=== PATIENT | female | born 1965 | race Caucasian/White ===

== ENCOUNTER 2017-12-09 20:24 | Emergency (ER) | payer OTHER, MEDICAID, SELFPAY ==
--- NOTE | 2017-12-09 20:28 | ED_ITS ---
HPI - Abdominal Pain General Chief Complaint: Abdominal Pain Stated Complaint: Rt upper ABD pain Time Seen by Provider: 12/09/17 20:27 Source: patient Mode of arrival: EMS Limitations: no limitations History of Present Illness HPI narrative: 52-year-old female here for evaluation of right upper quadrant abdominal pain. Patient uncertain the exact onset but some reports that it was less than 1 hr ago. Patient states that she has a history of ?colitis? and has abdominal pain daily and states that she feels distended. She states that the pain that brought her in today is different from her colitis pain. Has no change in bowel habits. No vomiting. Has no prior abdominal surgeries patient also states that she has a history of bleeding ulcers with her diagnosis of colitis. Also recently completing treatment of shingles that was on her right buttocks Related Data Home Medications Medication Instructions Recorded Confirmed [propanolol] #0 02/27/17 [wellbutrin] #0 02/27/17 Previous Rx's Medication Instructions Recorded acyclovir [Zovirax] 800 mg PO 5XD #35 tab 02/27/17 omeprazole 20 mg PO DAILY #60 cap 12/09/17 simethicone 125 mg PO BID-QID PRN #60 tab 12/09/17 Allergies Allergy/AdvReac Type Severity Reaction Status Date / Time bupropion [BUPROPION] Allergy Unknown Verified 12/09/17 21:08 latex [LATEX] Allergy Unknown Verified 12/09/17 21:08 Review of Systems Review of Systems All systems reviewed & are unremarkable except as noted in HPI and below Constitutional Denies chills, Denies fever(s), Denies lethargy and Denies weakness Cardiovascular Denies chest pain, Denies irregular heart rhythm, Denies lightheadedness, Denies palpitations, Denies dyspnea, Denies dyspnea on exertion and Denies orthopnea Respiratory Denies cough, Denies dyspnea, Denies dyspnea on exertion and Denies wheezing Gastrointestinal Gastrointestinal: Reports abdominal pain (Right upper quadrant), Denies melena, Reports bloating, Denies change in stool character, Denies coffee ground emesis , Denies constipation, Denies diarrhea, Denies nausea and Denies vomiting Genitourinary Denies hematuria, Denies flank pain, Denies urinary incontinence and Denies urinary urgency Musculoskeletal Denies back pain, Denies muscle weakness, Denies numbness and Denies tingling Integumentary/Breasts Denies pruritus, Denies erythema, Denies rash and Denies wounds Neurologic Denies numbness, Denies tingling and Denies weakness Endocrine Denies palpitations Hematologic/Lymphatic Denies easy bruising Allergic/Immunologic Denies wheezing [facility] Social History Smoking Status: Former smoker Exam Initial Vital Signs Initial Vital Signs: Vital Signs Temperature 97.5 F L 12/09/17 20:30 Pulse Rate 64 12/09/17 20:30 Respiratory Rate 18 12/09/17 20:30 Blood Pressure 136/63 H 12/09/17 20:30 Pulse Oximetry 98 12/09/17 20:30 Const General: cooperative, well developed and anxious Nutritional Appearance: well nourished Orientation: alert, awake, oriented x3 and not confused Resp Effort & Inspection: normal respiratory effort, able to speak in complete sentences, no respiratory distress and no use of accessory muscles Auscultation: clear to auscultation bilaterally, no rales, no rhonchi and no wheezes Cardio Rate: regular rate Rhythm: regular rhythm Heart Sounds: no click, no gallops, no murmurs and no rubs Pulses: normal peripheral pulses GI Inspection: normal to inspection and non-distended Palpation: soft, No firm and No guarding Back/Spine/Pelvis Back: No CVA tenderness Skin Other: Healing rash right buttocks Extrem General: full ROM, no clubbing, cyanosis or edema, no pedal edema and no calf tenderness Course Orders Ordered: ED Orders 12/09/17 20:38 US abdomen complete Stat 12/09/17 20:51 Complete Blood Count AUTO DIFF Stat Comprehensive Metabolic Panel Stat Lipase Stat 12/09/17 22:04 CT abdomen pelvis w con Stat Discontinued Medications Al Hydrox/Mg Hydrox/Simethicone 20 ml/ Lidocaine HCl 15 ml 0 ml PO NOW ONE Stop: 12/09/17 20:44 Last Admin: 12/09/17 20:58 Dose: 35 ml Morphine Sulfate (Morphine Sulfate) 5 mg IV NOW ONE Stop: 12/09/17 20:39 Last Admin: 12/09/17 20:48 Dose: 5 mg Morphine Sulfate (Morphine) 4 mg IV NOW ONE Stop: 12/09/17 22:05 Last Admin: 12/09/17 22:39 Dose: 4 mg Ondansetron HCl (Zofran) 4 mg IV NOW ONE Stop: 12/09/17 20:40 Last Admin: 12/09/17 20:49 Dose: 4 mg Vital Signs - 8 hr 12/09/17 20:30 12/09/17 21:59 12/09/17 23:47 Temperature 97.5 F L Pulse Rate 64 65 63 Respiratory Rate 18 18 Blood Pressure 136/63 H Blood Pressure [Left Arm] 118/72 96/51 L Pulse Oximetry 98 98 97 12/09/17 23:57 Temperature Pulse Rate 64 Respiratory Rate 12 Blood Pressure 100/59 L Blood Pressure [Left Arm] Pulse Oximetry 99 MDM - Abdominal Pain Lab Data Attestation: I reviewed the patient's lab results. Result diagrams: 12/09/17 20:51 12/09/17 20:51 Lab Results 12/09/17 12/09/17 Range/Units 20:51 20:51 WBC 4.7 (4.5-11.0) X10^3/uL RBC 3.76 L (4.0-5.2) X10^6/uL Hgb 12.7 (12.0-16.0) g/dL Hct 36.7 (36-46) % MCV 97.7 (80-100) fL MCH 33.8 (26-34) PG MCHC 34.6 (30-36) % RDW 14.7 (11.6-14.8) % Plt Count 223 (150-400) X10^3/uL Neut % (Auto) 46.8 L (50-75) % Lymph % (Auto) 41.5 H (25-40) % [place] % (Auto) 9.1 (3-14) % Eos % (Auto) 2.0 (2-4) % Baso % (Auto) 0.6 (0-2) % Neut # (Auto) 2200 L (8011-5661) /uL Sodium 143 (137-145) mmol/L Potassium 4.1 (3.4-5.1) mmol/L Chloride 102 (98-107) mmol/L Carbon Dioxide 29 (22-32) mmol/L BUN 12 (7-17) mg/dL Creatinine 0.70 (0.52-1.04) mg/dL Estimated GFR > 60.0 (>60) mL/min BUN/Creatinine Ratio 17.1 (6-22) Glucose 107 H (70-100) mg/dL Calcium 8.9 (8.4-10.2) mg/dL Total Bilirubin 0.5 (0.2-1.3) mg/dL AST 32 (14-36) IU/L ALT 30 (9-52) IU/L Alkaline Phosphatase 32 L (38-126) U/L Total Protein 6.9 (6.3-8.2) g/dL Albumin 4.2 (3.5-5.0) g/dL Globulin 2.7 (1.7-4.1) g/dL Albumin/Globulin Ratio 1.6 (1.0-2.8) Lipase 140 (23-300) U/L Imaging Data US - abdomen: Radiologist's impression: PROCEDURE: US ABDOMEN COMPLETE INDICATIONS: PAIN TECHNIQUE: Real-time scanning was performed of the abdominal and retroperitoneal organs, with image documentation. COMPARISON: [facility], CT, ABDOMEN/PELVIS WITH CONTRAST, 11/20/2007, 3:56. FINDINGS: Liver: Liver is normal in size and homogeneous in echotexture. Gallbladder: The gallbladder is normal. Biliary ducts: Intrahepatic bile ducts are non-dilated. Extrahepatic bile duct caliber measures 4.5 mm. Normal is 6-7 mm or less in diameter, or 10 mm or less post-cholecystectomy. Pancreas: Visualized portions of the pancreas are sonographically normal. Spleen: Spleen is normal in size and homogeneous in echotexture. Kidneys: Kidneys are normal in size and echotexture. Right kidney measures 9.0 cm long; left kidney measures 10.8 cm long. No hydronephrosis or nephrolithiasis. No solid masses. Aorta: Only the upper third of the aorta couldn't be seen due to bowel gas. That portion of measures normal. Iliacs: Not seen due to bowel gas. IVC: Intrahepatic inferior vena cava is patent. Miscellaneous: No free abdominal fluid. IMPRESSION: The proximal third of the aorta appeared normal. The remaining aorta and iliac arteries could not be seen due to bowel gas. Source of right upper quadrant pain is not found. Dictated by: Maximo Decker M.D. on 12/09/2017 at 21:26 CT scan - abdomen: Radiologist's impression: No acute intra-abdominal/intrapelvic process is identified. ECG Data Attestation: I personally reviewed and interpreted this ECG as follows: Prior ECG tracings: not available for review Interpretation: Time 2026 hr Sinus rhythm Ventricular rate is 64 Normal axis Normal intervals Normal QRS Normal QTC No ST T wave changes MDM Narrative Medical decision making narrative: Patient with a normal right upper quadrant ultrasound. Unremarkable CT scan of the abdomen. No surgical process found. We discussed symptom treatment to include PPI and simethicone for her bloating symptoms. We discussed return precautions. Will hold on further workup for now. Patient is instructed to keep her follow-up appointment with her primary doctor. She expressed understanding and agreement with plan Discharge Plan Departure Patient Disposition: Home, Self-Care Clinical Impression: Abdominal pain Discharge Date/Time: 12/10/17 00:00 Interventions: ED Discharge Assessment Last Done: 12/09/17 23:57 Instructions: DI for Abdominal Pain-Adult Activity Restrictions/Additional Instructions: Recommend that you contact your primary doctor tomorrow for a follow-up. Take the medication as directed. Return to the emergency department for any new or worsening symptoms Prescriptions: New omeprazole 20 mg capsule,delayed release(DR/EC) 20 mg PO DAILY Qty: 60 RF: 0 simethicone 125 mg tablet 125 mg PO BID-QID PRN (Reason: abdominal distention) Qty: 60 RF: 0 No Action [wellbutrin] Qty: 0 RF: 0 [propanolol] Qty: 0 RF: 0 acyclovir [Zovirax] 800 MG tablet 800 mg PO 5XD Qty: 35 RF: 0
[2017-12-09 20:30] VITALS: BP 136/63; PULSE 64; RESP 18; TEMP 36.4; O2SAT 98; BMI 25.8
--- NOTE | 2017-12-09 20:38 | DI.US.S_ITS ---
PROCEDURE: US ABDOMEN COMPLETE INDICATIONS: PAIN TECHNIQUE: Real-time scanning was performed of the abdominal and retroperitoneal organs, with image documentation. COMPARISON: [facility], CT, ABDOMEN/PELVIS WITH CONTRAST, 11/20/2007, 3:56. FINDINGS: Liver: Liver is normal in size and homogeneous in echotexture. Gallbladder: The gallbladder is normal. Biliary ducts: Intrahepatic bile ducts are non-dilated. Extrahepatic bile duct caliber measures 4.5 mm. Normal is 6-7 mm or less in diameter, or 10 mm or less post-cholecystectomy. Pancreas: Visualized portions of the pancreas are sonographically normal. Spleen: Spleen is normal in size and homogeneous in echotexture. Kidneys: Kidneys are normal in size and echotexture. Right kidney measures 9.0 cm long; left kidney measures 10.8 cm long. No hydronephrosis or nephrolithiasis. No solid masses. Aorta: Only the upper third of the aorta couldn't be seen due to bowel gas. That portion of measures normal. Iliacs: Not seen due to bowel gas. IVC: Intrahepatic inferior vena cava is patent. Miscellaneous: No free abdominal fluid. IMPRESSION: The proximal third of the aorta appeared normal. The remaining aorta and iliac arteries could not be seen due to bowel gas. Source of right upper quadrant pain is not found. Dictated by: Maximo Decker M.D. on 12/09/2017 at 21:26 Approved by: Maximo Decker M.D. on 12/09/2017 at 21:27
--- NOTE | 2017-12-09 20:43 | PC.NURSE ---
Pt c/o 04/22 sharp abdominal pain underneath the ribs on the right side. Was at home when the pain started suddenly at approx 194.
[2017-12-09] MEDS: MORPHINE 5 MG/ML INJ IV (20:48)
[2017-12-09] MEDS: ONDANSETRON 4 MG/2 ML INJ IV (20:49)
[2017-12-09] MEDS: MAG HYDROX/ALUMINUM/SIMETH SUS 20 ML, LIDOCAINE VISCOUS 2% 15 ML PO (20:58)
[2017-12-09 21:04] LABS: Add Manual Diff / Slide Review NO; Basophils Percent Auto 0.6 % (0-2); Hematocrit 36.7 % (36-46); Hemoglobin 12.7 g/dL (12.0-16.0); Lymphocytes Percent Auto 41.5 % (25-40); Mean Corpuscular HGB Conc 34.6 % (30-36); Mean Corpuscular Hemoglobin 33.8 PG (26-34); Mean Corpuscular Volume 97.7 fL (80-100); Monocytes Percent Auto 9.1 % (3-14); Neutrophils Absolute Auto 2200 /uL (3000-5900); Neutrophils Percent Auto 46.8 % (50-75); Platelet Count 223 X10^3/uL (150-400); Red Blood Cell Count 3.76 X10^6/uL (4.0-5.2); Red Cell Distribution Width 14.7 % (11.6-14.8); White Blood Cell Count 4.7 X10^3/uL (4.5-11.0)
[2017-12-09 21:10] LABS: Alanine Aminotransferase 30 IU/L (9-52); Albumin 4.2 g/dL (3.5-5.0); Albumin Globulin Ratio 1.6 (1.0-2.8); Alkaline Phosphatase 32 U/L (38-126); Aspartate Aminotransferase 32 IU/L (14-36); BUN Creatinine Ratio 17.1 (6-22); Bilirubin Total 0.5 mg/dL (0.2-1.3); Blood Urea Nitrogen 12 mg/dL (7-17); Calcium 8.9 mg/dL (8.4-10.2); Carbon Dioxide 29 mmol/L (22-32); Chloride 102 mmol/L (98-107); Estimated Glomerular Filt Rate > 60.0 mL/min (>60); Globulin 2.7 g/dL (1.7-4.1); Glucose 107 mg/dL (70-100); HEMOLYSIS < 15 (0-50); Lipase 140 U/L (23-300); Potassium 4.1 mmol/L (3.4-5.1); Sodium 143 mmol/L (137-145); Total Protein 6.9 g/dL (6.3-8.2)
[2017-12-09 21:59] VITALS: BP 118/72; PULSE 65; RESP 18; O2SAT 98
--- NOTE | 2017-12-09 22:04 | DI.CT.S_ITS ---
PROCEDURE: CT ABDOMEN PELVIS W CON INDICATIONS: Bilateral lower abdominal pain TECHNIQUE: After the administration of intravenous contrast, 5 mm thick sections acquired from the diaphragm to the symphysis. 5 mm coronal and sagittal reformats were acquired. For radiation dose reduction, the following was used: automated exposure control, adjustment of mA and/or kV according to patient size. COMPARISON: [facility], US, US ABDOMEN COMPLETE, 12/09/2017, 21:00. [facility], CT, ABDOMEN/PELVIS WITH CONTRAST, 11/20/2007, 3:56. FINDINGS: Preliminary report by [facility] radiology Image quality: Excellent. ABDOMEN: Lung bases: Lung bases are clear. Heart size is normal. Solid organs: Liver is normal in size and enhancement. There is mild, diffuse fatty infiltration of the liver. Gallbladder appears normal. Biliary system is non dilated. Pancreas enhances normally. Spleen is normal in size and enhancement. No adrenal nodules. Kidneys demonstrate normal size and enhancement, without hydronephrosis. Peritoneum and bowel: Bowel loops demonstrate normal wall thickness and caliber except for a focal area of small bowel wall thickening in the left lower quadrant, singlewall thickness of 11 mm. This is causing no apparent obstruction and there is no surrounding fat stranding or fluid collection. No evidence of appendicitis. Colon is unremarkable. No free fluid or air. Nodes and vessels: No retroperitoneal or mesenteric adenopathy by size criteria. Aorta and inferior vena cava are normal in size. Miscellaneous: No ventral hernias. PELVIS: Genitourinary: Bladder wall thickness is normal. Left and posterior periuterine calcified masses are again noted and unchanged, compatible with degenerative fibroids. Ovaries appear normal. No free fluid. Miscellaneous: No inguinal hernias or adenopathy. Bones: No suspicious bony lesions. No vertebral body compression fractures. IMPRESSION: 1. Not mentioned in the preliminary report is a short segment area of small bowel wall thickening in the left lower quadrant. This may represent chronic change from previous inflammatory bowel disease in the same area on last exam. No evidence of acute enteritis or obstruction. 2. Calcified exophytic uterine fibroids again noted. 3. Mild hepatic steatosis. Dictated by: Zachariah Almaguer M.D. on 12/10/2017 at 7:48 Approved by: Zachariah Almaguer M.D. on 12/10/2017 at 8:03
[2017-12-09] MEDS: MORPHINE 4 MG/ML INJ IV (22:39)
[2017-12-09 23:47] VITALS: BP 96/51; PULSE 63; O2SAT 97
[2017-12-09 23:57] VITALS: BP 100/59; PULSE 64; RESP 12; O2SAT 99
== END 2017-12-10 | disposition home or self-care (01) ==
PROVIDERS: Emergency Provider Emergency Medicine; Family Provider Family Medicine; PCP Family Medicine
DX: R10.9 Unspecified abdominal pain (principal)
CPT/HCPCS: 74177; 76700; 80053; 83690; 85025; 93005; 96374; 96375; 96376; 99283; 99285; J2270; J2405; Q9967

== ENCOUNTER → 2019-12-20 10:25 | Outpatient (CLI) | payer OTHER, MEDICAID, SELFPAY ==
[2019-12-20 11:08] LABS: Add Manual Diff / Slide Review NO; Basophils Absolute Auto 0 /uL (0-100); Basophils Percent Auto 0.4 % (0-2); Eosinophils Absolute Auto 100 /uL (0-450); Eosinophils Percent Auto 1.2 % (2-4); Hematocrit 39.2 % (36-46); Hemoglobin 13.6 g/dL (12.0-16.0); Lymphocytes Absolute Auto 1300 /uL (1100-4500); Lymphocytes Percent Auto 28.5 % (25-40); Mean Corpuscular HGB Conc 34.5 % (30-36); Mean Corpuscular Hemoglobin 33.3 PG (26-34); Mean Corpuscular Volume 96.5 fL (80-100); Monocytes Absolute Auto 400 /uL (0-900); Monocytes Percent Auto 8.2 % (3-14); Neutrophils Absolute Auto 2800 /uL (1500-7000); Neutrophils Percent Auto 61.7 % (50-75); Platelet Count 228 X10^3/uL (150-400); Red Blood Cell Count 4.07 X10^6/uL (4.0-5.2); White Blood Cell Count 4.6 X10^3/uL (4.5-11.0)
[2019-12-20 11:28] LABS: Alanine Aminotransferase 14 IU/L (<35); Albumin 4.2 g/dL (3.5-5.0); Albumin Globulin Ratio 1.4 (1.0-2.8); Alkaline Phosphatase 45 U/L (38-126); Aspartate Aminotransferase 27 IU/L (14-36); BUN Creatinine Ratio 18.6 (6-22); Bilirubin Total 0.5 mg/dL (0.2-1.3); Blood Urea Nitrogen 11 mg/dL (7-17); Calcium 9.4 mg/dL (8.4-10.2); Carbon Dioxide 28 mmol/L (22-32); Chloride 104 mmol/L (98-107); Cholesterol 267 mg/dL (140-199); Estimated Glomerular Filt Rate > 60.0 mL/min (>60); Globulin 2.9 g/dL (1.7-4.1); Glucose 114 mg/dL (70-100); HDL Cholesterol 91 mg/dL (40-60); HEMOLYSIS < 15 (0-50); LDL Cholesterol Calculated 163 mg/dL (<100); Potassium 4.1 mmol/L (3.4-5.1); Sodium 138 mmol/L (137-145); Total Protein 7.1 g/dL (6.3-8.2); Triglycerides 67 mg/dL (35-150)
[2019-12-20 11:44] LABS: Free T3, Triiodothyronine Free 3.67 pg/mL (2.77-5.27); Free T4, Direct Thyroxine 0.84 ng/dL (0.78-2.19)
[2019-12-20 11:58] LABS: Thyroid Stimulating Hormone 1.45 uIU/mL (0.47-4.68)
== END ==
PROVIDERS: Family Provider Family Medicine; PCP Family Medicine; Referring Provider Family Medicine; Visit Provider Family Medicine
DX: F41.9 Anxiety disorder, unspecified (principal); I10 Essential (primary) hypertension; E03.9 Hypothyroidism, unspecified; F32.1 Major depressive disorder, single episode, moderate
CPT/HCPCS: 36415; 80053; 80061; 84439; 84443; 84481; 85025

== ENCOUNTER 2022-12-04 12:58 | Observation (INO) | payer OTHER, MEDICAID, SELFPAY ==
[2022-12-04] VITALS (15 sets, daily range): BP systolic 135–206; BP diastolic 75–116; PULSE 29–81; RESP 16–35; TEMP 32.1–36.5; O2SAT 87–100; BMI 24.2; BMI 25.3
--- NOTE | 2022-12-04 13:23 | DI.RAD.S_ITS ---
PROCEDURE: XR CHEST 1V INDICATIONS: suspected sepsis TECHNIQUE: One view of the chest was acquired. COMPARISON: [facility], CHEST 1 VIEW, 09/03/2015, 12:37. [facility], , CHEST 2 VIEW, 08/11/2015, 10:48. FINDINGS: Surgical changes and devices: None. Lungs and pleura: Lungs are clear. No pleural effusions or pneumothorax. Mediastinum: Mediastinal contours appear normal. Heart size is normal. Bones and chest wall: No suspicious bony lesions. Overlying soft tissues appear unremarkable. IMPRESSION: No acute cardiopulmonary process. Dictated by: Karsten Crowley M.D. on 12/04/2022 at 12:56 Approved by: Karsten Crowley M.D. on 12/04/2022 at 12:56
--- NOTE | 2022-12-04 13:35 | DI.CT.S_ITS ---
PROCEDURE: CT HEAD/BRAIN WO CON INDICATIONS: hypothermia, fall, dog bites, acute on chronic back pain TECHNIQUE: Noncontrast 4.5 mm thick angled axial sections acquired from the foramen magnum to the vertex, with coronal and sagittal reformats. For radiation dose reduction, the following was used: automated exposure control, adjustment of mA and/or kV according to patient size. COMPARISON: None. FINDINGS: Image quality: Excellent. CSF spaces: Basal cisterns are patent. No extra-axial fluid collections. Ventricles are normal in size and shape. Brain: No midline shift. No intracranial masses or hemorrhage. Garcia-white matter interface is normal. Skull and face: Calvarium and visualized facial bones are intact, without suspicious lesions. Sinuses: Visualized sinuses and mastoids are clear. IMPRESSION: No acute intracranial pathology. Dictated by: Karsten Crowley M.D. on 12/04/2022 at 13:22 Approved by: Karsten Crowley M.D. on 12/04/2022 at 13:23
--- NOTE | 2022-12-04 13:35 | DI.CT.S_ITS ---
PROCEDURE: CT CERVICAL SPINE WO CON INDICATIONS: hypothermia, fall, dog bites, acute on chronic back pain TECHNIQUE: Noncontrast 3 mm thick sections acquired from the skull base to the T4 level. Sagittal and coronal reformats were then constructed. For radiation dose reduction, the following was used: automated exposure control, adjustment of mA and/or kV according to patient size. COMPARISON: None. FINDINGS: Image quality: Excellent. Bones: No fractures or dislocations. Visualized superior ribs are intact. Mild disc height loss at C6-7 and C5-6. Soft tissues: Prevertebral soft tissues are normal in thickness. No paravertebral hematomas. No apical pneumothoraces. IMPRESSION: No acute, displaced fracture or traumatic subluxation. Dictated by: Karsten Crowley M.D. on 12/04/2022 at 13:29 Approved by: Karsten Crowley M.D. on 12/04/2022 at 13:31
--- NOTE | 2022-12-04 13:35 | DI.CT.S_ITS ---
PROCEDURE: CT CHEST ABD PEL W CON INDICATIONS: hypothermia, fall, dog bites, acute on chronic back pain TECHNIQUE: After the administration of intravenous contrast, 5 mm thick sections acquired from the lung apices to the symphysis. 2.5 mm thick coronal and sagittal reformats were acquired. Additional 7 mm thick coronal maximum intensity projection (MIP) reformats acquired through the lungs. Optional 10-minute delayed imaging may be performed from the kidneys to the bladder. For radiation dose reduction, the following was used: automated exposure control, adjustment of mA and/or kV according to patient size. COMPARISON: None. FINDINGS: Image quality: Excellent. CHEST: Lungs: No pulmonary contusions or lacerations. No acute airspace opacities. No pneumothorax or hemothorax. Central and peripheral airways appear patent and normal in caliber. Mediastinum: No mediastinal hematomas. Heart size is normal. No pericardial effusion. Thoracic aorta and pulmonary arteries demonstrate normal size and enhancement. No mediastinal or hilar adenopathy. Esophagus is normal in caliber. No hiatal hernia. Marked coronary artery calcifications for age. Chest wall: No rib fractures. No subcutaneous emphysema. No axillary or supraclavicular adenopathy. Thyroid gland is unremarkable. Prior right breast lumpectomy, with superficial fat stranding ABDOMEN: Solid organs: Liver is normal in size and enhancement, without lacerations. Gallbladder is unremarkable. Biliary system is non-dilated. Pancreas enhances normally, without transection. Spleen is normal in size and enhancement, without lacerations. No adrenal hematomas. Both kidneys enhance normally, without hydronephrosis or lacerations. Peritoneum and bowel: No free fluid or air. Unenhanced bowel loops demonstrate normal wall thickness and caliber. Nodes and vessels: No retroperitoneal or mesenteric adenopathy. Aorta and inferior vena cava are normal in size and enhancement. Miscellaneous: No ventral hernias. PELVIS: Genitourinary: Vo catheter within bladder. Calcified subserosal fibroid. Miscellaneous: No inguinal hernias or adenopathy. Bones: Pelvic ring and hip joints appear intact. No vertebral compression fractures. IMPRESSION: No traumatic injury to the chest, abdomen or pelvis. Marked coronary artery calcifications for age. Consider cardiology referral. Dictated by: Karsten Crowley M.D. on 12/04/2022 at 13:24 Approved by: Karsten Crowley M.D. on 12/04/2022 at 13:29
[2022-12-04 13:36] LABS: Alanine Aminotransferase 38 IU/L (<35); Albumin Globulin Ratio 1.6 (1.0-2.8); Alkaline Phosphatase 71 U/L (38-126); Aspartate Aminotransferase 86 IU/L (14-36); BUN Creatinine Ratio 23.3 (6-22); Bilirubin Total 0.8 mg/dL (0.2-1.3); Blood Urea Nitrogen 14 mg/dL (7-17); Calcium 9.8 mg/dL (8.4-10.2); Carbon Dioxide 22 mmol/L (22-32); Chloride 106 mmol/L (98-107); Creatine Kinase 201 U/L (30-135); Estimated Glomerular Filt Rate > 60 mL/min (>60); Globulin 3.1 g/dL (1.7-4.1); Glucose 88 mg/dL (70-100); Lactate (Lactic Acid) 3.6 mmol/L (0.7-2.1); Lipase 91 U/L (23-300); Potassium 3.1 mmol/L (3.4-5.1); Sodium 144 mmol/L (137-145); Total Protein 8.1 g/dL (6.3-8.2)
--- NOTE | 2022-12-04 13:38 | ED.WEAKNESS ---
HPI - Weakness General Chief complaint: Weakness Stated complaint: Generalized Weakness Time Seen by Provider: 12/04/22 13:34 Source: patient and EMS Mode of arrival: EMS History of Present Illness HPI Narrative: This is a 57-year-old female with history of hypertension, hypothyroidism, depression who states she was started on a new medication a week ago for her heart to prevent heart failure or strokes. Patient states that she ended up on the floor this morning a couple hours prior to arrival. She states she is been having a lot of increased back pain she did not have a fall today but lowered herself to the ground secondary to pain. She does note that in the past week starting on Friday or Friday she had been breaking up a dog fight fell about 2 or 3 steps off a porch onto her side been had bites on her legs and abdomen and has bruises on her legs, abdomen left under I. She states her pain did seem to be worsening after that she has chronic pain but it has been much worse. She denies radiation. She denies any numbness, tingling or weakness. She denies any loss of bowel or bladder control. She denies fevers but states she is very cold. She states she got really sweaty today when she ended up on the floor and then got very cold. She denies nasal congestion, cold or cough symptoms. She denies chest pain or shortness of breath she denies nausea or vomiting. She denies diarrhea constipation. She denies any fecal or urinary incontinence. She denies new swelling in her extremities. She states bruising has been slowly improving. Patient states she is had lumpectomy x2 they had to go back after the 07 14 to get some additional tissue. She denies any other surgeries no prior back surgeries. No tobacco she states she drinks alcohol occasionally a couple drinks but she is a little vague about this. She does use THC. She denies any illicit or IV drugs. Patient states she is allergic to latex and iodine topically. And bupropion. Patient friend had called for assistance she would called her friend who she could not get up off the floor. Patient notes that she is been caring for her son's dogs for the past month and she is had to break up multiple fights but to into female animals. Related Data Home Medications Medication Instructions Recorded Confirmed anastrozole 1 mg tablet 1 mg PO DAILY 05/24/23 05/24/23 buspirone 10 mg tablet 10 mg PO BID 12/04/22 12/04/22 fluoxetine 40 mg capsule 40 mg PO DAILY 12/04/22 12/04/22 levothyroxine 50 mcg tablet 50 mcg PO DAILY 12/04/22 12/04/22 lisinopril 40 mg tablet 40 mg PO DAILY 12/04/22 12/04/22 propranolol 80 mg capsule,24 80 mg PO DAILY 12/04/22 12/04/22 hr,extended release rosuvastatin 5 mg tablet 5 mg PO DAILY 12/04/22 12/04/22 Allergies Allergy/AdvReac Type Severity Reaction Status Date / Time bupropion [BUPROPION] Allergy Unknown Verified 12/09/17 21:08 latex [LATEX] Allergy Unknown Verified 12/09/17 21:08 Review of Systems Review of Systems ROS Unobtainable: All systems reviewed & are unremarkable except as noted in HPI and below Patient History Social History household members: children Smoking Status: Former smoker alcohol intake: current Smoking Status: Former smoker alcohol intake frequency: a few times a week Substance Use Type: marijuana Exam Narrative Exam Narrative: GEN: Disheveled female, alert and oriented x 3, patient appears to be in [id number] distress. Patient feels slightly cold to touch. HEENT: Atraumatic except for to small areas of ecchymosis below the left eye over the cheek bone, no hematoma appreciated, no breakdown of the skin pupils are equal round reactive to light, extraocular movements are intact, nares are clear, TMs are clear with no fluid, there is no conjunctival pallor. Throat is clear without any exudates, erythema, tonsillar enlargement or uvular deviation HEART: Bradycardic but Regular rate and rhythm without murmur, clicks, rubs. No carotid bruits, pulses are equal in upper and lower extremities LUNGS:Lungs clear to auscultation, no wheezes, rales, crackles, chest moves symmetrically ABD:bowel sounds normal, soft, non-tender, no guarding, rebound, rigidity, no masses noted, no hepatosplenomegaly :No CVA tenderness BACK: No cervical, thoracic or lumbar vertebral point tenderness. Patient has some slight increase in pain in the lower lumbar spine bilaterally in the lateral sides. Patient has decreased range of motion at the back. Patient's gait is deferred. Rectal exam is normal tone.. Muscle strength is 5/5 in lower extremities, patient able to move legs and straight leg lift without issue, DTRs are 2/4 and lower extremities. Dorsalis pedis and tibialis pulses are 2+ and lower extremities. Sensation is intact in the lower extremities. MSCL: Mild tenderness, patient has significant bruising over bilateral lower extremities ranging from about 12 cm x 8 cm 2 smaller areas, no large hematomas are appreciated but she has multiple areas with abrasion no clear puncture wounds are appreciated over her calves, thighs, patient has a small area of abrasion on the right lower abdomen. She also has quite a bit of bruising on bilateral elbows with abrasion hands. No warmth, erythema or skin changes otherwise. No large hematomas were palpated. No bruising on the back. No muscle atrophy, muscles strength 5/5 upper and lower extremities, full range of motion. NEURO:CN 2-12 intact, sensation normal, reflexes 2/4 upper and lower extremities. Initial Vital Signs Initial Vital Signs: Vital Signs Pulse Rate 29 L 12/04/22 13:04 Pulse Oximetry 87 L 12/04/22 13:04 Course Orders Ordered: ED Orders 12/04/22 13:23 XR chest 1V Stat Acetaminophen Stat BNP [NT-proBNP (BNP-Adult 18+)] Stat COVID19 -Nasal RAPID Stat Complete Blood Count AUTO DIFF Stat Comprehensive Metabolic Panel Stat ETOH [Ethanol (ETOH)] Stat Lactate (Lactic Acid) Stat Lipase Stat Procalcitonin Stat Salicylate Stat Troponin & CK Cardiac Panel Stat 12/04/22 13:31 UA Complete [Urinalysis and Microscopic] Stat Urine Drug Screen, Rapid Stat 12/04/22 13:35 CT cervical spine wo con Stat CT chest abd pel w con Stat CT head/brain wo con Stat COVID19 -Nasal RAPID Stat 12/04/22 13:37 EKG-12 Lead Stat 12/04/22 14:29 PTT Partial Thromboplastin Lc Stat Prothrombin Time INR Stat 12/04/22 14:38 Blood Culture Stat 12/04/22 14:41 Consult to LANDSCAPE DESIGNER - Business Continuity Specialist Stat 12/04/22 14:54 Consult to LANDSCAPE DESIGNER - Business Continuity Specialist Stat Acetaminophen (Acetaminophen 325 Mg Tablet) 650 mg PO Q6H PRN PRN Reason: Fever/Mild Pain (1-3) Hydrocodone Bitart/Acetaminophen (Hydrocodone/Acet 5/325 Tablet) 1 tab PO Q4H PRN PRN Reason: Pain, Moderate (4-6) Alprazolam (Alprazolam 0.5 Mg Tablet) 0.5 mg PO Q6H PRN PRN Reason: Anxiety Anastrozole (Anastrozole 1 Mg Tablet) 1 mg PO DAILY [facility] Atorvastatin Calcium (Atorvastatin 20 Mg Tablet) 10 mg PO BEDTIME [facility] Buspirone HCl (Buspirone 5 Mg Tablet) 10 mg PO BID [facility] Enoxaparin Sodium (Enoxaparin 40 Mg/0.4 Ml Syringe) 40 mg SUBCUT DAILY [facility] Fluoxetine HCl (Fluoxetine 20 Mg Capsule) 40 mg PO DAILY [facility] Hydralazine HCl (Hydralazine 20 Mg/Ml Vial) 10 mg IV Q6HR PRN PRN Reason: Hypertension SBP >180 Sodium Chloride (Normal Saline 0.9%) 1,000 mls @ 100 mls/hr IV CONT [facility] Levothyroxine Sodium (Levothyroxine 50 Mcg Tablet) 50 mcg PO DAILY@0600 [facility] Lisinopril (Lisinopril 20 Mg Tablet) 40 mg PO DAILY [facility] Naloxone HCl (Naloxone 0.4 Mg/Ml Vial) 0.2 mg IV Q2MIN PRN PRN Reason: Opiate Reversal Propranolol 80 Mg Er (Cap 24hr) 80 mg PO DAILY [facility] Ondansetron HCl (Ondansetron 4 Mg Odt) 4 mg SL NOW PRN PRN Reason: Nausea And Vomiting Discontinued Medications Diphtheria/Tetanus/Acell Pertussis (Tet,Diph,Pertuss(Acell),Vac/Pf 0.5 Ml Syringe) 0.5 ml IM .ONCE ONE Stop: 12/04/22 13:45 Last Admin: 12/04/22 15:05 Dose: 0.5 ml Documented By: ANAIS Sodium Chloride (Normal Saline 0.9%) 1,000 mls @ 1,000 mls/hr IV BOLUS ONE Stop: 12/04/22 14:22 Last Infusion: 12/04/22 14:42 Dose: 1,000 mls/hr Documented By: Infusion: 12/04/22 14:41 Dose: 0 mls/hr Documented By: Admin: 12/04/22 13:59 Dose: 1,000 mls/hr Documented By: TIKI Sodium Chloride (Normal Saline 0.9%) 1,000 mls @ 1,000 mls/hr IV BOLUS ONE Stop: 12/04/22 15:40 Last Infusion: 12/04/22 15:54 Dose: 0 mls/hr Documented By: Admin: 12/04/22 14:40 Dose: 1,000 mls/hr Documented By: ANAIS Ketorolac Tromethamine (Ketorolac 30 Mg/Ml Vial) 15 mg IV NOW ONE Stop: 12/04/22 14:55 Last Admin: 12/04/22 15:04 Dose: 15 mg Documented By: ANAIS Ondansetron HCl (Ondansetron 4 Mg/2 Ml Inj) 4 mg IV NOW PRN PRN Reason: Nausea And Vomiting Last Admin: 12/04/22 15:03 Dose: 4 mg Documented By: ANAIS Potassium Chloride (Potassium Chloride 20 Meq/15 Ml Udc) 40 meq PO NOW ONE Stop: 12/04/22 14:55 Last Admin: 12/04/22 15:02 Dose: 40 meq Documented By: ANAIS Vital Signs Vital signs: Vital Signs - 8 hr 12/04/22 13:15 12/04/22 13:04 12/04/22 13:30 Temperature 89.8 F L Pulse Rate 63 29 L 58 L Respiratory Rate 20 35 H Blood Pressure 202/100 H Pulse Oximetry 95 87 L 92 Oxygen Delivery Method Room Air 12/04/22 13:40 12/04/22 13:40 12/04/22 13:59 Temperature 90.7 F L Pulse Rate 51 L Respiratory Rate 23 Blood Pressure 203/92 H 167/116 H Pulse Oximetry 97 Oxygen Delivery Method 12/04/22 13:59 12/04/22 14:00 12/04/22 14:00 Temperature Pulse Rate 67 70 Respiratory Rate 22 24 Blood Pressure 206/82 H Pulse Oximetry 95 94 Oxygen Delivery Method 12/04/22 14:04 12/04/22 14:04 12/04/22 14:15 Temperature 92.5 F L 93.4 F L Pulse Rate 68 71 Respiratory Rate 21 22 Blood Pressure 190/113 H Pulse Oximetry 98 96 Oxygen Delivery Method 12/04/22 14:15 12/04/22 14:30 12/04/22 14:39 Temperature 94.1 F L Pulse Rate 78 Respiratory Rate 23 Blood Pressure 175/103 H 178/79 H Pulse Oximetry 95 Oxygen Delivery Method 12/04/22 14:39 12/04/22 15:00 Temperature 94.3 F L Pulse Rate 74 Respiratory Rate 29 H Blood Pressure 155/75 H Pulse Oximetry 94 Oxygen Delivery Method MDM - Weakness Lab Data 12/04/22 13:23 12/04/22 13:23 Labs: Lab Results 12/04/22 12/04/22 12/04/22 Range/Units 13:23 13:23 13:23 WBC 10.9 (4.5-11.0) X10^3/uL RBC 4.22 (4.0-5.2) X10^6/uL Hgb 14.0 (12.0-16.0) g/dL Hct 40.8 (36-46) % MCV 96.9 (80-100) fL MCH 33.3 (26-34) PG MCHC 34.3 (30-36) % RDW 13.4 (11.6-14.8) % Plt Count 261 (150-400) X10^3/uL Neut % (Auto) 77.9 H (50-75) % Lymph % (Auto) 16.9 L (25-40) % [place] % (Auto) 4.3 (3-14) % Eos % (Auto) 0.4 L (2-4) % Baso % (Auto) 0.5 (0-2) % Neut # (Auto) 8500 H (4955-7840) /uL Lymph # (Auto) 1800 (2180-2632) /uL [place] # (Auto) 500 (0-900) /uL Eos # (Auto) 0 (0-450) /uL Baso # (Auto) 100 (0-100) /uL PT (10.1-12.7) SECONDS INR (0.9-1.3) APTT (26-36) SECONDS Sodium 144 (137-145) mmol/L Potassium 3.1 L (3.4-5.1) mmol/L Chloride 106 (98-107) mmol/L Carbon Dioxide 22 (22-32) mmol/L BUN 14 (7-17) mg/dL Creatinine 0.60 (0.52-1.04) mg/dL Estimated GFR > 60 (>60) mL/min BUN/Creatinine Ratio 23.3 H (6-22) Glucose 88 (70-100) mg/dL Lactate 3.6 H (0.7-2.1) mmol/L Calcium 9.8 (8.4-10.2) mg/dL Total Bilirubin 0.8 (0.2-1.3) mg/dL AST 86 H (14-36) IU/L ALT 38 H (<35) IU/L Alkaline Phosphatase 71 (38-126) U/L Total Creatine Kinase 201 H (30-135) U/L CK-MB (CK-2) 1.63 (<2.37) ng/mL CK-MB (CK-2) Rel Index 0.8 L (1.5-5.0) % Troponin I < 0.012 (0.01-0.034) ng/mL NT-Pro-B Natriuret Pep 402 H (<125) pg/mL Total Protein 8.1 (6.3-8.2) g/dL Albumin 5.0 (3.5-5.0) g/dL Globulin 3.1 (1.7-4.1) g/dL Albumin/Globulin Ratio 1.6 (1.0-2.8) Lipase 91 (23-300) U/L Procalcitonin 0.03 (<0.5) ng/mL Urine Color Urine Appearance Urine pH (4.5-8.0) Ur Specific [place] (1.000-1.035) Urine Protein (Negative) Urine Glucose (UA) (Negative) g/dL Urine Ketones (NEGATIVE) Urine Occult Blood (Negative) Urine Nitrate (Negative) Urine Bilirubin (NEGATIVE) Urine Urobilinogen (0.2) E.U./dL Ur Leukocyte Esterase (NEGATIVE) Urine RBC (0-5/HPF) Urine WBC (0-5/HPF) Urine Bacteria (None) Ur Culture Indicated? Micro UA Comment Salicylates (<20) mg/dL U Opiates 300ng/mL cut (Negative) Ur Oxycodone Screen (Negative) Urine Methadone Screen (Negative) Acetaminophen (10-30) ug/mL Ur Barbiturates Screen (Negative) U Tricyclic Antidepress (Negative) Ur Phencyclidine Scrn (Negative) Ur Amphetamines Screen (Negative) U Methamphetamines Scrn (Negative) Ur MDMA Scrn (Ecstasy) (Negative) U Benzodiazepines Scrn (Negative) Urine Cocaine Screen (Negative) U Marijuana (THC) Screen (Negative) Ethyl Alcohol ( - 10) mg/dL 12/04/22 12/04/22 12/04/22 Range/Units 13:23 13:23 13:31 WBC (4.5-11.0) X10^3/uL RBC (4.0-5.2) X10^6/uL Hgb (12.0-16.0) g/dL Hct (36-46) % MCV (80-100) fL MCH (26-34) PG MCHC (30-36) % RDW (11.6-14.8) % Plt Count (150-400) X10^3/uL Neut % (Auto) (50-75) % Lymph % (Auto) (25-40) % [place] % (Auto) (3-14) % Eos % (Auto) (2-4) % Baso % (Auto) (0-2) % Neut # (Auto) (1753-3422) /uL Lymph # (Auto) (6963-2715) /uL [place] # (Auto) (0-900) /uL Eos # (Auto) (0-450) /uL Baso # (Auto) (0-100) /uL PT (10.1-12.7) SECONDS INR (0.9-1.3) APTT (26-36) SECONDS Sodium (137-145) mmol/L Potassium (3.4-5.1) mmol/L Chloride (98-107) mmol/L Carbon Dioxide (22-32) mmol/L BUN (7-17) mg/dL Creatinine (0.52-1.04) mg/dL Estimated GFR (>60) mL/min BUN/Creatinine Ratio (6-22) Glucose (70-100) mg/dL Lactate (0.7-2.1) mmol/L Calcium (8.4-10.2) mg/dL Total Bilirubin (0.2-1.3) mg/dL AST (14-36) IU/L ALT (<35) IU/L Alkaline Phosphatase (38-126) U/L Total Creatine Kinase (30-135) U/L CK-MB (CK-2) (<2.37) ng/mL CK-MB (CK-2) Rel Index (1.5-5.0) % Troponin I (0.01-0.034) ng/mL NT-Pro-B Natriuret Pep (<125) pg/mL Total Protein (6.3-8.2) g/dL Albumin (3.5-5.0) g/dL Globulin (1.7-4.1) g/dL Albumin/Globulin Ratio (1.0-2.8) Lipase (23-300) U/L Procalcitonin (<0.5) ng/mL Urine Color Yellow Urine Appearance Clear Urine pH 5.5 (4.5-8.0) Ur Specific [place] 1.025 (1.000-1.035) Urine Protein Negative (Negative) Urine Glucose (UA) Negative (Negative) g/dL Urine Ketones 3+ H (NEGATIVE) Urine Occult Blood Negative (Negative) Urine Nitrate Negative (Negative) Urine Bilirubin Negative (NEGATIVE) Urine Urobilinogen 0.2 (0.2) E.U./dL Ur Leukocyte Esterase Negative (NEGATIVE) Urine RBC None seen (0-5/HPF) Urine WBC None seen (0-5/HPF) Urine Bacteria None seen (None) Ur Culture Indicated? Cult not indicated Micro UA Comment Microscopic normal Salicylates < 1.0 (<20) mg/dL U Opiates 300ng/mL cut (Negative) Ur Oxycodone Screen (Negative) Urine Methadone Screen (Negative) Acetaminophen < 10 (10-30) ug/mL Ur Barbiturates Screen (Negative) U Tricyclic Antidepress (Negative) Ur Phencyclidine Scrn (Negative) Ur Amphetamines Screen (Negative) U Methamphetamines Scrn (Negative) Ur MDMA Scrn (Ecstasy) (Negative) U Benzodiazepines Scrn (Negative) Urine Cocaine Screen (Negative) U Marijuana (THC) Screen (Negative) Ethyl Alcohol < 10 ( - 10) mg/dL 12/04/22 12/04/22 Range/Units 13:31 14:29 WBC (4.5-11.0) X10^3/uL RBC (4.0-5.2) X10^6/uL Hgb (12.0-16.0) g/dL Hct (36-46) % MCV (80-100) fL MCH (26-34) PG MCHC (30-36) % RDW (11.6-14.8) % Plt Count (150-400) X10^3/uL Neut % (Auto) (50-75) % Lymph % (Auto) (25-40) % [place] % (Auto) (3-14) % Eos % (Auto) (2-4) % Baso % (Auto) (0-2) % Neut # (Auto) (2962-8194) /uL Lymph # (Auto) (4047-6734) /uL [place] # (Auto) (0-900) /uL Eos # (Auto) (0-450) /uL Baso # (Auto) (0-100) /uL PT 11.7 (10.1-12.7) SECONDS INR 1.0 (0.9-1.3) APTT 30 (26-36) SECONDS Sodium (137-145) mmol/L Potassium (3.4-5.1) mmol/L Chloride (98-107) mmol/L Carbon Dioxide (22-32) mmol/L BUN (7-17) mg/dL Creatinine (0.52-1.04) mg/dL Estimated GFR (>60) mL/min BUN/Creatinine Ratio (6-22) Glucose (70-100) mg/dL Lactate (0.7-2.1) mmol/L Calcium (8.4-10.2) mg/dL Total Bilirubin (0.2-1.3) mg/dL AST (14-36) IU/L ALT (<35) IU/L Alkaline Phosphatase (38-126) U/L Total Creatine Kinase (30-135) U/L CK-MB (CK-2) (<2.37) ng/mL CK-MB (CK-2) Rel Index (1.5-5.0) % Troponin I (0.01-0.034) ng/mL NT-Pro-B Natriuret Pep (<125) pg/mL Total Protein (6.3-8.2) g/dL Albumin (3.5-5.0) g/dL Globulin (1.7-4.1) g/dL Albumin/Globulin Ratio (1.0-2.8) Lipase (23-300) U/L Procalcitonin (<0.5) ng/mL Urine Color Urine Appearance Urine pH (4.5-8.0) Ur Specific [place] (1.000-1.035) Urine Protein (Negative) Urine Glucose (UA) (Negative) g/dL Urine Ketones (NEGATIVE) Urine Occult Blood (Negative) Urine Nitrate (Negative) Urine Bilirubin (NEGATIVE) Urine Urobilinogen (0.2) E.U./dL Ur Leukocyte Esterase (NEGATIVE) Urine RBC (0-5/HPF) Urine WBC (0-5/HPF) Urine Bacteria (None) Ur Culture Indicated? Micro UA Comment Salicylates (<20) mg/dL U Opiates 300ng/mL cut Negative (Negative) Ur Oxycodone Screen Negative (Negative) Urine Methadone Screen Negative (Negative) Acetaminophen (10-30) ug/mL Ur Barbiturates Screen Negative (Negative) U Tricyclic Antidepress Negative (Negative) Ur Phencyclidine Scrn Negative (Negative) Ur Amphetamines Screen Negative (Negative) U Methamphetamines Scrn Negative (Negative) Ur MDMA Scrn (Ecstasy) Negative (Negative) U Benzodiazepines Scrn Negative (Negative) Urine Cocaine Screen Negative (Negative) U Marijuana (THC) Screen Positive H (Negative) Ethyl Alcohol ( - 10) mg/dL ECG Data Attestation: I personally reviewed and interpreted this ECG as follows: Interpretation: Sinus bradycardia with sinus arrhythmia rate of 55 MD 136 QRS is 78 QTC of 501. No acute ST elevation. Patient has prior from 12/09/2017 rate was in the 60s and other 1 was in the 90s. Patient does not have clear ST elevation but T-waves do appear more peaked than typical. [facility] [place] Narrative Medical decision making narrative: This is a 57-year-old female who presents with not really altered mental status but weakness secondary to back pain patient did have a recent fall after breaking up a fight with dogs and has significant bruising on her lower extremities but no large hematomas. She states she was very sweaty before she fell and got cold she is hypothermic on exam with temperature Vo catheter, heart rate was in the 40s for the medics is in the 50s to 60s here and she is hypertensive. She does not have any acute mental status changes but with her fall head CT, C-spine and chest abdomen pelvis were obtained. New clear source of infection but labs for infection, evaluation of electrolytes, renal function, tox, cardiac sources or obtained. Patient's imaging including head CT C-spine chest abdomen pelvis does not show any clear acute change, bleed, no obvious change to spine or back. Patient's lab, show mild hypokalemia, potassium 3.1, lactate 3.6 AST ALT are 86 and 38 but normal bilirubin. Negative troponin BNP is only 400. Negative protocol. I suspect lactate maybe elevated somewhat from hypothermia but there is concern for infection. No clear source was found. Patient's morning with Stacie Hugger and warmed fluids and has moved up to 95, heart rate has improved and I suspect her bradycardia may be secondary to cold with some Walker ways, blood pressure she is quite hypertensive has also improved somewhat. Patient's urine does not show clear infection she is some ketones, negative UDS, negative salicylates and Tylenol she is positive for THC. No EtOH. Put LANDSCAPE DESIGNER consult in concerned about safety patient has been breaking up dog bites and has significant bruising concerned about her safety at home with these dogs as well as how she ended up on the floor hypothermic. Patient case was discussed with Dr. Sanderson her primary care who accepts for observation. Critical Care Time Critical Care Time Critical Care Time: Yes Total Critical Care Time: 35 Attestation: The high probability of a clinically significant, sudden or life threatening deterioration of the [cardiac] system(s) required my full and direct attention, intervention and personal management. The aggregate critical care time was [] minutes. This time is in addition to time spent performing reported procedures but includes the following: [x] Data Review and interpretation [x] Patient assessment and monitoring of vital signs [x] Documentation [x] Medication orders and management Discharge Plan Departure Patient Disposition: Admitted as Observation Clinical Impression: Hypothermia, Acute exacerbation of chronic low back pain, Weakness Admit Date/Time: 12/04/22 15:04 Admit Provider: Richie Loza
[2022-12-04 13:45] LABS: Add Manual Diff / Slide Review NO; Basophils Absolute Auto 100 /uL (0-100); Basophils Percent Auto 0.5 % (0-2); Eosinophils Absolute Auto 0 /uL (0-450); Eosinophils Percent Auto 0.4 % (2-4); Hematocrit 40.8 % (36-46); Lymphocytes Absolute Auto 1800 /uL (1100-4500); Lymphocytes Percent Auto 16.9 % (25-40); Mean Corpuscular HGB Conc 34.3 % (30-36); Mean Corpuscular Hemoglobin 33.3 PG (26-34); Mean Corpuscular Volume 96.9 fL (80-100); Monocytes Absolute Auto 500 /uL (0-900); Monocytes Percent Auto 4.3 % (3-14); Neutrophils Absolute Auto 8500 /uL (1500-7000); Neutrophils Percent Auto 77.9 % (50-75); Platelet Count 261 X10^3/uL (150-400); Red Blood Cell Count 4.22 X10^6/uL (4.0-5.2); Red Cell Distribution Width 13.4 % (11.6-14.8); White Blood Cell Count 10.9 X10^3/uL (4.5-11.0)
[2022-12-04 13:48] LABS: NT-proBNP (BNP-Adult 18+) 402 pg/mL (<125); Troponin I < 0.012 ng/mL (0.01-0.034)
[2022-12-04 13:51] LABS: CKMB % Relative Index 0.8 % (1.5-5.0); Creatine Kinase MB 1.63 ng/mL (<2.37); HEMOLYSIS 19 (0-50)
[2022-12-04 13:53] LABS: Procalcitonin 0.03 ng/mL (<0.5)
[2022-12-04] MEDS: SODIUM CHLORIDE 0.9% 1,000 ML 1000 ML IV ×2 (13:59→14:40)
[2022-12-04 14:10] LABS: Acetaminophen < 10 ug/mL (10-30); Salicylate < 1.0 mg/dL (<20)
[2022-12-04 14:11] LABS: Ethanol (ETOH) < 10 mg/dL
[2022-12-04 14:24] LABS: Appearance Urine UA CLEAR; Bilirubin Urine UA NEGATIVE (NEGATIVE); Color Urine UA YELLOW; Glucose Urine UA NEGATIVE (Negative); Ketones Urine UA 3+ (NEGATIVE); Leukocyte Esterase Urine UA NEGATIVE (NEGATIVE); Nitrite Urine UA NEGATIVE (Negative); Occult Blood Urine UA NEGATIVE (Negative); Protein Urine UA NEGATIVE (Negative); Specific Gravity Urine UA 1.025 (1.000-1.035); Urobilinogen Urine UA 0.2 E.U./dL (0.2)
[2022-12-04 14:25] LABS: pH Urine UA 5.5 (4.5-8.0)
[2022-12-04 14:29] LABS: Bacteria Urine None Seen; Culture Indicated Urine Cult Not Indicated; RBC Urine None Seen (0-5/HPF); Ur Creatinine Normal (Normal); Ur Specific Gravity Normal (Normal); Urine Comments Microscopic Normal; Urine pH Normal (Normal); WBC Urine None Seen (0-5/HPF)
[2022-12-04 14:30] LABS: UR Morphine/Opiate cutoff 300 Negative (Negative); Urine Amphetamines Negative (Negative); Urine Barbiturates Negative (Negative); Urine Benzodiazepines Negative (Negative); Urine Cocaine Negative (Negative); Urine MDMA Negative (Negative); Urine Methadone Negative (Negative); Urine Methamphetamines Negative (Negative); Urine Oxycodone Negative (Negative); Urine Phencyclidine Negative (Negative); Urine Tetrahydrocannabinol Positive (Negative); Urine Tricyclic Antidepressant Negative (Negative)
[2022-12-04] MEDS: POTASSIUM CHLORIDE 20 MEQ/15 ML UDC 40 MEQ PO (15:02)
[2022-12-04] MEDS: ONDANSETRON 4 MG/2 ML INJ IV (15:03)
[2022-12-04] MEDS: KETOROLAC 30 MG/ML VIAL 15 MG IV (15:04)
[2022-12-04] MEDS: TET,DIPH,PERTUSS(ACELL),VAC/PF 0.5 ML SYRINGE IM (15:05)
[2022-12-04 15:13] LABS: Prothrombin Time 11.7 SECONDS (10.1-12.7)
[2022-12-04 15:15] LABS: PTT Partial Thromboplastin Tim 30 SECONDS (26-36)
[2022-12-04 15:25] LABS: Reflexed Lactate in 2 Hours Y
[2022-12-04 16:04] LABS: Lactate 2HR (Lactic Acid Rflx) 0.9 mmol/L (0.7-2.1)
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
[2022-12-04] MEDS: BUSPIRONE 5 MG TABLET 10 MG PO (20:05)
[2022-12-04] MEDS: ATORVASTATIN 20 MG TABLET 10 MG PO (20:05)
[2022-12-04] MEDS: HYDROCODONE/ACET 5/325 TABLET 1 TAB PO (20:05)
[2022-12-04] MEDS: SODIUM CHLORIDE 0.9% 1,000 ML 100 ML IV (20:06)
[2022-12-04] MEDS: ALPRAZolam 0.5 MG TABLET PO (23:12)
[2022-12-05] MEDS: LEVOTHYROXINE 50 MCG TABLET PO (05:44)
[2022-12-05] MEDS: HYDROCODONE/ACET 5/325 TABLET 1 TAB PO ×2 (05:44→11:23)
[2022-12-05] MEDS: SODIUM CHLORIDE 0.9% 1,000 ML 100 ML IV (05:49)
[2022-12-05 06:06] LABS: Add Manual Diff / Slide Review NO; Basophils Absolute Auto 0 /uL (0-100); Basophils Percent Auto 0.4 % (0-2); Eosinophils Absolute Auto 0 /uL (0-450); Eosinophils Percent Auto 0.7 % (2-4); Hematocrit 29.7 % (36-46); Hemoglobin 10.3 g/dL (12.0-16.0); Lymphocytes Absolute Auto 1400 /uL (1100-4500); Lymphocytes Percent Auto 24.2 % (25-40); Mean Corpuscular HGB Conc 34.6 % (30-36); Mean Corpuscular Hemoglobin 33.5 PG (26-34); Mean Corpuscular Volume 96.9 fL (80-100); Monocytes Absolute Auto 600 /uL (0-900); Monocytes Percent Auto 10.6 % (3-14); Neutrophils Absolute Auto 3700 /uL (1500-7000); Neutrophils Percent Auto 64.1 % (50-75); Platelet Count 190 X10^3/uL (150-400); Red Blood Cell Count 3.06 X10^6/uL (4.0-5.2); Red Cell Distribution Width 13.9 % (11.6-14.8); White Blood Cell Count 5.7 X10^3/uL (4.5-11.0)
[2022-12-05 06:15] LABS: Alanine Aminotransferase 24 IU/L (<35); Albumin 3.1 g/dL (3.5-5.0); Albumin Globulin Ratio 1.5 (1.0-2.8); Alkaline Phosphatase 40 U/L (38-126); Aspartate Aminotransferase 34 IU/L (14-36); BUN Creatinine Ratio 16.4 (6-22); Bilirubin Total 0.5 mg/dL (0.2-1.3); Blood Urea Nitrogen 11 mg/dL (7-17); Calcium 7.7 mg/dL (8.4-10.2); Carbon Dioxide 19 mmol/L (22-32); Chloride 106 mmol/L (98-107); Estimated Glomerular Filt Rate > 60 mL/min (>60); Globulin 2.1 g/dL (1.7-4.1); Glucose 57 mg/dL (70-100); HEMOLYSIS < 15 (0-50); Potassium 3.2 mmol/L (3.4-5.1); Sodium 133 mmol/L (137-145); Total Protein 5.2 g/dL (6.3-8.2)
[2022-12-05 07:00] VITALS: BP 111/69; PULSE 86; RESP 18; TEMP 37; O2SAT 96
[2022-12-05] MEDS: ENOXAPARIN 40 MG/0.4 ML SYRINGE SUBCUT (08:37)
[2022-12-05 08:38] VITALS: BP 111/69; PULSE 86
[2022-12-05] MEDS: lisinopriL 20 MG TABLET 40 MG PO (08:38)
[2022-12-05] MEDS: ANASTROZOLE 1 MG TABLET PO (08:39)
[2022-12-05] MEDS: BUSPIRONE 5 MG TABLET 10 MG PO (08:39)
[2022-12-05] MEDS: FLUoxetine 20 MG CAPSULE 40 MG PO (08:39)
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
--- NOTE | 2022-12-05 11:12 | PT.IIE ---
Physical Therapy Inpatient Evaluation/Re-Eval M1 PT/OT-IP Prior Functional Status Start: 12/05/22 12:48 Freq: NEEDED Status: Active Protocol: Document 12/05/22 11:12 AB (Rec: 12/05/22 12:59 AB [email or web address]) Medical Review Prior Functional Status Medical History Reviewed Yes Communication able to make needs known Mobility and Gait pt stated that she is independent with all mobilities and ambulation without AD Social History Household Members none Living Arrangements House Number of Stairs To Enter/Railing? pt plans to go to her friend's house upon d/c: home set up info is regarding pt's friend' s house 1 level house 2 steps L rail ascending to enter Home Environment Standard Height Toilet,Walk in Shower,Built-In Shower Seat Home Equipment Hand Held Shower,Grab Bars Near Toilet,Grab Bars In Shower M2 PT-IP Current Condition Start: 12/05/22 12:48 Freq: NEEDED Status: Active Protocol: Document 12/05/22 11:12 AB (Rec: 12/05/22 12:59 AB [email or web address]) Physical Therapy Current Condition Current Condition Evaluation Date 12/05/22 Treatment Diagnosis GLF; hypothermia; generalized weakness Onset Date 12/04/22 M3 PT-IP Subjective Start: 12/05/22 12:48 Freq: NEEDED Status: Active Protocol: Document 12/05/22 11:12 AB (Rec: 12/05/22 12:59 AB [email or web address]) Subjective Physical Therapy Visit Type Type Initial Evaluation Visit Start Time 11:12 Visit Stop Time 11:35 Total Visit Minutes 23 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 Physical Therapy Visit Comments Patient Comments agreeable to do PT Therapy Pain Assessment Pain When Pain Assessed At Rest Location Back Intensity 8 Scale Used Numeric (0 - 10) Pain Management Techniques Distraction,Modification of Treatment,Re-positioning, Timing of Activity with Medications M4 PT-IP Mobility and Gait Start: 12/05/22 12:48 Freq: NEEDED Status: Active Protocol: Document 12/05/22 11:12 AB (Rec: 12/05/22 12:59 AB [email or web address]) PT-Bed Mobility Assessment Supine to Sit Supine to Sit Independent Sit to Supine Sit to Supine Independent PT-Transfer Assessment Sit to and From Stand Sit to and from Stand Independent Equipment Transfer Assistive Device None,Gait Belt Orthotic/Prosthetic Devices or Brace: No Transfer Ability Level of Assist Standby Assistance Comments Mobility Comments BP: 123/79. completed supine to sit independent. pt with ( +) BLE bruising and c/o overall body soreness but c/o more of LBP of 8/10. completed sit to stand SBA and ambulated in room without AD SBA. presents with wide based gait and slow pace but without LOB. pt agreed to ambulate towards the stairs and completed ~ 150 ft without AD SBA. pt completed up/down steps using L rail ascending SBA. pt ambulated back to her room SBA without AD. pt requested to go back to bed and completed sit to supine independent. call light and table placed within reach. informed pt regarding safety and is cleared to ambulate in room by herself but to ask for assistance if needed. pt understood and agreed. Gait Assessment Gait Gait Assistance Required: Standby Assistance Distance (Feet) 150 Able to Maintain Weight Bearing Status Yes During Gait Assistive Devices Assistive Device None,Gait Belt Orthotic/Prosthetic Devices or Brace: No Gait Deviations General Gait Pattern Wide Based Gait Factors Limiting Gait Function Factors Limiting Gait Function Decreased Activity Tolerance, Decreased Strength,Pain,Poor Balance Stair Climbing Assessment Evaluation Level of Assist On Stairs Standby Assistance Devices Stair Climbing Assistive Devices Left Railing Technique/Endurance Stair Climbing Direction Ascend and Descend Stair Climbing Technique Step to Step Number of Steps Climbed 3 Query Text: PT-Balance Assessment Sitting Balance and Reactions Static Sitting Balance Ability Normal Dynamic Sitting Balance Ability Normal Standing Balance and Reactions Static Standing Balance Ability Good Dynamic Standing Balance Ability Good Device Used without AD M5 PT-IP Objective Assessments Start: 12/05/22 12:48 Freq: NEEDED Status: Active Protocol: Document 12/05/22 11:12 AB (Rec: 12/05/22 12:59 AB [id number]) Orientation Orientation/Cognition Level of Alertness Alert Orientation Name,Place,Situation Language Function Ability No Deficits Noted Safety Awareness Understands Safety Issues Memory Description No Deficits Noted Gross Range of Motion Lower Extremity ROM Assessment Within Functional Limits Strength Lower Extremity Strength Hip 4-/5 Knee 4-/5 Sensation Assessment Sensation Gross Sensation WNL Muscle Tone Muscle Tone WNL Yes M6 PT-IP Treatment Start: 12/05/22 12:48 Freq: NEEDED Status: Active Protocol: Document 12/05/22 11:12 AB (Rec: 12/05/22 12:59 [id number]) Physical Therapy Treatment Education Education Provided Safety M7 PT-IP Assessment and Plan Start: 12/05/22 12:48 Freq: NEEDED Status: Active Protocol: Document 12/05/22 11:12 AB (Rec: 12/05/22 12:59 [id number]) PT Summary Assessment and Plan Potential Rehabilitation Potential Good Status of Condition at Evaluation Stable Summary Impairments Pain,ROM,Strength,Balance, Coordination,Sensation,Tone, Cognition,Bed Mobility, Transfers,Gait,Activity Tolerance Assessment Summary PT eval completed and no further PT intervention indicated at this time. pt provided SBA for safety but can be independent in her room . pt plans to go home to her friend's house and her friend will be able to assist her if needed. Frequency of Treatment Frequency Of Treatment Discharge Recommendations To Nursing Amount of Assist Needed Standby Assistance Discharge Recommendations PT Discharge Recommendations Home Transportation Needs at Discharge Private Vehicle
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
== END 2022-12-05 15:15 | disposition home or self-care (01) | DRG 815 ==
LOC: ED 15:04 → AC 17:37
PROVIDERS: Admitting Provider Family Medicine; Emergency Provider Emergency Medicine; Family Provider Family Medicine; PCP Family Medicine; Referring Provider Emergency Medicine; Visit Provider Family Medicine
DX: T68.XXXA Hypothermia, initial encounter (principal); R00.1 Bradycardia, unspecified; F41.9 Anxiety disorder, unspecified; I10 Essential (primary) hypertension; E03.9 Hypothyroidism, unspecified; E78.5 Hyperlipidemia, unspecified; C50.919 Malignant neoplasm of unspecified site of unspecified female breast; M54.50 Low back pain, unspecified; G89.29 Other chronic pain; W10.9XXA Fall (on) (from) unspecified stairs and steps, initial encounter; Z87.891 Personal history of nicotine dependence; Z20.822 Contact with and (suspected) exposure to COVID-19; Z23 Encounter for immunization
CPT/HCPCS: 36415; 70450; 71045; 71260; 72125; 74177; 80053; 80305; 80320; 80329; 81001; 82550; 82553; 83605; 83690; 83880; 84145; 84484; 85025; 85610; 85730; 87040; 90471; 93005; 93010; 96374; 96375; 97161; 99284; 99291; G0378; 90715; G0480; J1650; J1885; J2405; Q9967